=== PATIENT | male | born 1985 | race Caucasian/White ===

== ENCOUNTER 2022-08-02 08:00 | Outpatient (CLI) | payer MEDICAID ==
--- NOTE | 2022-08-02 16:51 | XRAY Report ---
PROCEDURE: Lumbar Spine 2 View INDICATIONS: LOW BACK PX TECHNIQUE: 3 views of the lumbar spine were acquired. COMPARISON: None. FINDINGS: Bones: 5 [id number] vertebrae are present. There is normal bony alignment. No vertebral body compression fractures. No suspicious bony lesions. A very small osteophyte is noted at the superior L4 and L5 endplate. Noted at the superior L5 endplate. Soft tissues: Overlying bowel gas pattern is normal. No suspicious soft tissue calcifications. IMPRESSION: Very mild degenerative change. Reviewed by: Dneisha Ibarra MD on 08/02/2022 4:50 PM PDT Approved by: Denisha Ibarra MD on 08/02/2022 4:50 PM PDT Station ID: [id number]
== END 2022-08-02 23:59 | disposition home or self-care (01) ==
LOC: DI.N 08:00
PROVIDERS: ATTEND Registered Nurse
DX: M47.816 Spondylosis without myelopathy or radiculopathy, lumbar region (principal)

== ENCOUNTER 2022-11-15 16:08 | Outpatient (CLI) | payer MEDICAID ==
--- NOTE | 2022-11-15 19:25 | XRAY Report ---
PROCEDURE: Ribs w/PA Chest RT INDICATIONS: CHEST WALL PAIN TECHNIQUE: 2 views of the right ribs were acquired, along with a single view chest. COMPARISON: None FINDINGS: Surgical changes and devices: None. Bones and chest wall: No fractures or dislocations. No suspicious bony lesions. Overlying soft tis sues appear unremarkable. Left clavicular cortical sideplate and screws Lungs and pleura: No pleural effusions or pneumothorax. Lungs appear clear. Mediastinum: Mediastinal contours appear normal. Heart size is normal. IMPRESSION: No evidence of rib fracture. No acute cardiopulmonary findings Reviewed by: Bart Cruz MD on 11/15/2022 6:23 PM [place] Approved by: Bart Cruz MD on 11/15/2022 6:23 PM [facility] Station ID: [id number]
== END 2022-11-15 16:09 | disposition home or self-care (01) ==
LOC: DI 16:08
PROVIDERS: ATTEND Physician Assistant
DX: R07.89 Other chest pain (principal)

== ENCOUNTER 2023-02-11 13:26 | Outpatient (CLI) | payer MEDICAID ==
--- NOTE | 2023-02-11 16:47 | XRAY Report ---
PROCEDURE: Shoulder 2 View LT INDICATIONS: PAIN IN LEFT SHOULDER TECHNIQUE: 2 views of the shoulder were acquired. COMPARISON: Chest and rib radiographs 11/15/2022 FINDINGS: Bones: No acute fracture or dislocation identified. Postsurgical changes of the left clavicle with p lates and screws present as before. Soft tissues: No suspicious soft tissue calcifications. IMPRESSION: No acute bony abnormality. If pain persists with conservative management, consider repeat radiographs in 10-14 days or cross-sectional imaging. Reviewed by: Lion Grajeda MD on 02/11/2023 4:46 PM PDT Approved by: Lion Grajeda MD on 02/11/2023 4:46 PM PDT Station ID: [id number]
== END 2023-02-11 23:59 | disposition home or self-care (01) ==
LOC: DI.N 13:26
PROVIDERS: ATTEND Nurse Practitioner
DX: M25.512 Pain in left shoulder (principal)